=== PATIENT | male | born 1985 | race Two or more races ===

== ENCOUNTER 2020-12-17 10:00 | Outpatient (CLI) | payer OTHER | END 2020-12-17 10:15 | disposition home or self-care (01) | LOC: PPH VACUNA 10:00 | PROVIDERS: ATTEND Emergency Medicine Pediatric Emergency Medicine | DX: Z23 Encounter for immunization (principal) ==

== ENCOUNTER 2021-08-14 13:20 | Outpatient (CLI) | payer OTHER | END 2021-08-14 13:56 | disposition home or self-care (01) | LOC: LAB 13:20 | DX: U07.1 COVID-19 (principal) ==